=== PATIENT | female | born 1975 | race Caucasian/White ===

== ENCOUNTER → 2016-07-28 08:46 | Outpatient (CLI) | payer OTHER ==
--- NOTE | 2016-07-28 15:14 | NUR ---
Nutrition education for bariatric surgery: S: Pt reports she has tried several different weight loss diets-Weight Watchers, Low carbohydrate [employer] diet, HCG diet-with ~20-30# weight loss. Pt states she was able to keep the weight off ~1-2 years but eventually gained all the weight back. Pt eats a lot of fast food daily since she lives with her 20 year old son. Pt is also skipping meals every day. Pt is drinking diet soda. O: 40 year old female PMH: HTN, DJD, high cholesterol Ht: 5'3" Wt: 228# IBW: 115# +/-10% BMI: 40.4 A: Pt does not seem to realize how much food she is eating. Pt tells me she is not eating very much and is walking every day and is still unable to lose any weight. It is obvious pt is eating more than she thinks. Reviewed post-bariatric surgery diet-meal phases; liquids between meals; no straws; 1/2 cup meal size; dumping syndrome; vitamin, mineral supplements; protein needs; stomach size; pouch stretching; protein supplements; diet limitations. Also reviewed preprocedure diet control and gave pt homework to start now; such as, 1500 calorie/day meal plan; taking a daily multivitamin; starting a walking program; no carbonated beverages; seperating liquids from meals; no fast food. Pt seems to be motivated to make the necessary lifestyle changes needed for long-term weight loss with bariatic surgery. P: Provided pt with printed pre-post op diet information and RDN name and phone number. RDN will be available if needed. Thank you for this consult.
== END | disposition home or self-care (01) ==
LOC: D.FANS 08:46
DX: Z01.818 Encounter for other preprocedural examination (principal)

== ENCOUNTER 2016-09-01 11:35 | Outpatient (CLI) | payer OTHER | END 2016-09-01 11:55 | LOC: D.MAMMO 11:35 | DX: Z12.31 Encounter for screening mammogram for malignant neoplasm of breast (principal) ==